=== PATIENT | female | born 1950 | race Caucasian/White ===

== ENCOUNTER 2017-10-05 14:00 | Outpatient (CLI) | payer OTHER | END 2017-10-05 14:01 | disposition home or self-care (01) | LOC: BICULT 14:00 | PROVIDERS: ATTEND Anesthesiology Pain Medicine | DX: I82.402 Acute embolism and thrombosis of unspecified deep veins of left lower extremity (principal) ==

== ENCOUNTER 2018-01-03 11:52 | Outpatient (CLI) | payer BC ==
[2018-01-03 13:46] LABS: #Basophils 0.1 thou/uL (0.0-0.2); #Eosinphils 0.2 thou/uL (0.0-0.7); #Monocytes 0.8 thou/uL (0.11-0.59); #Neutrophils 5.3 thou/uL (1.40-6.50); %Basophils 0.7 % (0.0-1.0); %Eosinophils 2.5 % (0.0-10.0); %Lymphocytes 23.9 % (21.0-51.0); %Monocytes 9.6 % (0.0-10.0); %Neutrophils 63.4 % (42.0-75.0); Hemoglobin 15.6 g/dL (12.0-16.0); Mean Corpuscular HGB CONC 34.2 g/dL (32.0-36.0); Mean Corpuscular Volume 93.5 fL (78.0-98.0); Platelet Count 211 thou/uL (130-400); RBC Distribution Width 12.3 % (11.5-14.5); Red Blood Cell (RBC) Count 4.87 mill/uL (4.20-5.40); White Blood Cell (WBC) Count 8.4 thou/uL (4.8-10.8)
== END 2018-01-03 11:53 | disposition home or self-care (01) ==
LOC: LABBT 11:52
PROVIDERS: ATTEND Specialist
DX: Z01.818 Encounter for other preprocedural examination (principal); K82.8 Other specified diseases of gallbladder
CPT/HCPCS: 85025; 93005; 93010

== ENCOUNTER 2018-01-04 09:39 | Day surgery (SDC) | payer BC ==
[2018-01-03 12:10] VITALS: BMI 46.0
--- NOTE | 2018-01-03 12:49 | HP ---
HISTORY OF PRESENT ILLNESS: Ms. Erica Smith is a 67-year-old female, morbidly obese, 294 pounds, 65 in ches, 43 BMI, who presents with episodic epigastric right upper quadrant pain with flank radiation, i nterscapular pain, bloating, belching, and indigestion. The patient has been treated for right flank pain, interscapular pain and seen Dr. Montelongo for injections without relief. She has seen a chi ropractor for 6 months without relief. She was referred for the ultrasound. [facility] as an [facility]. Ultrasound revealed gallstones, sludge balls, zeynep l caliber bile duct. Plan is for laparoscopic cholecystectomy as an outpatient. She understands the risks and benefits and consents. PAST MEDICAL HISTORY: Hypertension, elevated cholesterol, chronic thoracic and lumbar pain, colonosc opy recently normal, vitamin D deficiency. PAST SURGICAL HISTORY: Appendectomy, left wrist cyst resection, rectocele, cystocele. I repaired um bilical hernia in 2010, along with Dr. Collins doing the gynecological procedures. She has chronic th oracolumbar pain in disc and is followed by Dr. Montelongo and chiropractor. There is family histor y of heart disease. Her father of heart disease, sister with coronary artery disease. She rece ntly had a nuclear medicine cardiac stress test that was normal, performed Dr. Denny. The patien t was told she did not need to have catheterizations as her nuclear medicine cardiac stress test was normal. REVIEW OF SYSTEMS: [place] otherwise noncontributory. MEDICATIONS: Carvedilol 25 mg b.i.d., vitamin D daily. PHYSICAL EXAMINATION: VITAL SIGNS: 294 pounds, 65 inches, 43 BMI. SKIN: Nonjaundiced. HEENT: Unremarkable. Sclerae nonicteric NEUROLOGIC: No focal deficits. LUNGS: Clear to auscultation, no wheezing. CARDIAC: Regular rate and rhythm. No murmur or gallop. ABDOMEN: Soft, obese, mild tenderness in epigastrium and right upper quadrant with guarding. Obese abdomen. EXTREMITIES: No ankle edema, palpable pedal pulses. ASSESSMENT AND PLAN: 1. Chronic cholecystitis, cholelithiasis. Recommend laparoscopic video cholecystectomy. We will pr oceed tomorrow if she has ongoing pain. 2. Morbid obesity, metabolic syndrome. 3. Hypertension. 4. Chronic back pain.
[2018-01-04] MEDS ORDERED: Ketorolac Tromethamine 30 MG/ML VIAL ONE (10:53)
[2018-01-04] MEDS ORDERED: Piperacillin/Tazobactam 3.375 GM in Sodium Chloride 0.9% 100 ML IVPB SCH (11:00)
[2018-01-04] MEDS ORDERED: Bupivacaine HCl 0.5%/Epinephrine 1:200,000/PF 30 ml Vial ONE (11:03)
[2018-01-04] MEDS ORDERED: Fentanyl 250 MCG/5 ML VIAL ONE (11:08)
[2018-01-04] MEDS ORDERED: hydrALAZINE 20 MG/ML VIAL ONE (12:37)
[2018-01-04] MEDS ORDERED: Fentanyl 100 MCG/2 ML VIAL ONE ×2 (12:51→13:41)
--- NOTE | 2018-01-04 14:42 | OP ---
DATE OF PROCEDURE: 01/04/2018 PREOPERATIVE DIAGNOSES: Chronic cholecystitis, cholelithiasis, morbid obesity. POSTOPERATIVE DIAGNOSES: Chronic cholecystitis, cholelithiasis, morbid obesity, fatty liver. PROCEDURE: Laparoscopic video cholecystectomy. SURGEON: Jaime Espinal M.D. ANESTHESIA: General, local 0.5% Marcaine with epinephrine, 30 mL, total volume used. PROCEDURE IN DETAIL: The patient was taken to the operating room where under general anesthesia, abd omen was prepared with ChloraPrep and draped in routine fashion. Local anesthetic infiltrated into s kin and subcutaneous tissue about each port site. Because of the infraumbilical incision and umbilic al hernia repair with mesh in the past, the right subcostal incision made mid clavicular line and pne umoperitoneum to 15 mmHg were obtained with the Veress needle, replacing it with a 5 port and video l aparoscope inserted. There were adhesions about the umbilicus and above the umbilicus is adhesion fr ee. A supraumbilical incision was made and a 5-mm port directed to avoid these adhesions, visualized laparoscopically, removing the laparoscope through this port. Right subxiphoid incision made and 11 -port placed. Bilateral subcostal incision made, and a 5-port place. Gallbladder appeared normal ex ternally, and was slightly distended. Liver was fatty, consistent with her morbid obesity. Fundus o f the gallbladder grasped and reflected cephalad. Infundibulum grasped and reflected laterally. Cri tical view obtained. Cystic artery and duct dissected free to accomplish this and cystic artery and duct doubly clipped proximally, divided, and gallbladder dissected free from the liver bed obtaining good hemostasis prior to division of final peritoneal attachments. Gallbladder and contents removed. Small stones noted. Good hemostasis ensured with cautery. Irrigant and pneumoperitoneum evacuated . All instruments removed. All skin incisions approximated with interrupted subdermal 4-0 Monocryl after DermaGlue applied.
== END 2018-01-04 15:45 | disposition home or self-care (01) ==
LOC: SDC 09:39
PROVIDERS: ATTEND Specialist
PROC: 0FT44ZZ Resection of Gallbladder, Percutaneous Endoscopic Approach (ICD-10-PCS; principal; 2018-01-04)
DX: K81.1 Chronic cholecystitis (principal); I10 Essential (primary) hypertension; E78.00 Pure hypercholesterolemia, unspecified; G89.29 Other chronic pain; M54.6 Pain in thoracic spine; E55.9 Vitamin D deficiency, unspecified; M54.5 Low back pain; E66.01 Morbid (severe) obesity due to excess calories; K76.0 Fatty (change of) liver, not elsewhere classified; Z79.899 Other long term (current) drug therapy; Z88.2 Allergy status to sulfonamides; Z88.1 Allergy status to other antibiotic agents; Z88.5 Allergy status to narcotic agent; Z88.8 Allergy status to other drugs, medicaments and biological substances; Z68.42 Body mass index [BMI] 45.0-49.9, adult
CPT/HCPCS: 88304; 96374; 96376; J0131; J0360; J0670; J1885; J2543; J3010; J7050

== ENCOUNTER 2018-01-13 15:41 | Outpatient (CLI) | payer BC ==
--- NOTE | 2018-01-13 16:22 | ULT ---
ULTRASOUND WITH DOPPLER DUPLEX VENOUS LOWER EXTREMITY LEFT: CPT: 94008 ICD-10-PCS: B54D INDICATION: Edema, erythema, and pain of left lower extremity. TECHNIQUE: Color flow Doppler, spectral waveform analysis of pulsed Doppler, and peace-scale imaging with connor chica and augmentation, were used to evaluate the left common femoral, femoral, popliteal, posterior t ibial, and superficial femoral, veins; and the proximal portions of the profunda femoral and greater saphenous, veins. FINDINGS: Appropriate compressibility and flow within the imaged deep venous system of the left lower extremity . IMPRESSION: No deep venous thrombosis. POS: [facility]
== END 2018-01-13 15:42 | disposition home or self-care (01) ==
LOC: SCSULT 15:41
PROVIDERS: ATTEND Podiatrist Foot & Ankle Surgery
DX: R60.0 Localized edema (principal)

== ENCOUNTER 2018-03-14 14:47 | Outpatient (CLI) | payer BC ==
--- NOTE | 2018-03-14 17:07 | MRI ---
MRI THORACIC SPINE WITHOUT CONTRAST: 03/14/18 HISTORY: Chronic back pain. Neck pain. Symptoms on the left side. COMPARISON: None. TECHNIQUE: Thoracic spine MRI is performed without intravenous gadolinium administration. Multisequential, multi planar imaging is performed. FINDINGS: An appropriate T1 narrow signal intensity of the thoracic vertebrae. Thoracic spine vertebral body he ight is maintained. There is no fracture. No significant STIR hyperintensity to suggest vertebral bod y edema or ligamentous injury. The visualized thoracic cord has an overall normal size and signal int ensity. The conus medullaris terminates at the superior aspect of L1. There is no evidence of cord ma lacia. There is no evidence of T2 hyperintensity in the cord. No evidence cord expansion. T6-T7: Small right sided disc protrusion deforming the thecal sac and deforming the right hemicord. M ild central canal stenosis. T7-T8: There is a right sided disc protrusion that deforms the thecal sac and deforms the right hemic ord. Mild central canal stenosis. No signal abnormality of the cord. Patent neural foramina throughou t the thoracic spine. The visualized mediastinum and lung parenchyma are unremarkable. There is prominent fat in the adolescent medicine specialist ior left pleural margin, similar to a CT from April 2017. IMPRESSION: Degenerative disc disease of the thoracic spine as above. No high grade central canal stenosis. No hi gh grade foraminal narrowing. The greatest degree of degenerative disc disease at T6-T7 and T7-T8. POS: [facility]
--- NOTE | 2018-03-14 17:24 | MRI ---
MRI LUMBAR SPINE WITHOUT CONTRAST: 03/14/18 HISTORY: Lumbar radiculopathy. COMPARISON: 04/20/17. TECHNIQUE: MRI lumbar spine is performed without intravenous gadolinium administration. Multisequential, multipl jennifer imaging is performed. FINDINGS: Appropriate T1 narrow signal intensity of the lumbar vertebrae. Lumbar spine vertebral body height is maintained. There is no fracture. No significant STIR hyperintensity to suggest vertebral body edema or ligamentous injury. There is 3 mm of anterolisthesis of L4 upon L5, unchanged. The visualized solid organs have appropriate signal intensity. Right parapelvic cysts are again demon strated. The conus medullaris terminates at the superior aspect of L1. T12-L1: Adequate disc hydration. No significant central canal stenosis. Neural foramina are patent. L1-L2: Adequate disc hydration. No significant central canal stenosis or foraminal narrowing. L2-L3: There is minimal disc desiccation without significant loss of disc space height. Generalized d isc bulge, ligamentum flavum thickening and facet hypertrophy results in mild central canal stenosis. The degree of central canal stenosis has not progressed when compared to the prior examination. Bila terally, neural foramina are minimally narrowed. L3-L4: Adequate disc hydration. No significant loss of disc space height. No significant posterior di sc abnormality. No significant central canal stenosis. Disc material does encroach upon the left suba rticular zone and abuts the traversing left L4 nerve root. There is a subtle T2 and hyperintense focu s representing a small annular fissure, involving the disc at the subarticular zone, adjacent to the traversing left L4 nerve root. No significant foraminal narrowing. L4-L5: Adequate disc hydration. No significant loss of disc space height. Generalized disc bulge, lig amentum flavum thickening and facet hypertrophy result in mild to moderate central canal stenosis. Ne ural foramina are patent bilaterally. There is a subtle T2 and hyperintense lesion along the right la teral/right extraforaminal aspect of the disc suggesting a small annular fissure. The finding is bora lar to the previous examination. L5-S1: No significant central canal stenosis or foraminal narrowing. IMPRESSION: 1. Stable anterolisthesis of L4 upon L5. 2. Stable annular fissure along the right lateral aspect of the L4-L5 disc at the level of the r ight neural foramen. No significant associated abnormality with this aforementioned annular fissure. 3. Narrowing of the left subarticular zone at L3-L4. There is some mass effect upon the traversi ng left L4 nerve root. There is an adjacent annular fissure. POS: [facility]
== END 2018-03-14 14:48 | disposition home or self-care (01) ==
LOC: TBSIIMAG 14:47
PROVIDERS: ATTEND Neurological Surgery
DX: M54.6 Pain in thoracic spine (principal); M51.34 Other intervertebral disc degeneration, thoracic region; M43.16 Spondylolisthesis, lumbar region; M99.83 Other biomechanical lesions of lumbar region; M51.16 Intervertebral disc disorders with radiculopathy, lumbar region; M48.061 Spinal stenosis, lumbar region without neurogenic claudication
CPT/HCPCS: 72146; 72148

== ENCOUNTER 2018-04-27 10:37 | Outpatient (CLI) | payer BC | END 2018-04-27 10:38 | disposition home or self-care (01) | LOC: BICMAMMO 10:37 | PROVIDERS: ATTEND Internal Medicine | DX: Z12.31 Encounter for screening mammogram for malignant neoplasm of breast (principal); R92.1 Mammographic calcification found on diagnostic imaging of breast; Z80.3 Family history of malignant neoplasm of breast | CPT/HCPCS: 77063; 77067 ==

== ENCOUNTER 2018-08-21 14:21 | Outpatient (CLI) | payer BC ==
--- NOTE | 2018-08-21 15:29 | RAD ---
CHEST TWO VIEWS: 08/21/2018 PROVIDED CLINICAL HISTORY: Chronic bronchitis. Cough. COMPARISON: 06/22/2018 FINDINGS: The cardiac silhouette remains enlarged. No focal consolidation, pleural fluid, or pneumothorax appa rent. IMPRESSION: Stable radiographic appearance of the chest. POS: [facility]
== END 2018-08-21 14:22 | disposition home or self-care (01) ==
LOC: BICRAD 14:21
PROVIDERS: ATTEND Nurse Practitioner Family
DX: J41.1 Mucopurulent chronic bronchitis (principal)
CPT/HCPCS: 71046

== ENCOUNTER 2018-09-01 08:47 | Outpatient (CLI) | payer BC ==
--- NOTE | 2018-09-01 10:44 | CT ---
CT OF THE CHEST WITH CONTRAST: Date: 09/01/18 COMPARISON: 03/16/13. HISTORY: Cough that she cannot get rid of, with bronchitis. Cardiac mass. TECHNIQUE: Multiple contiguous axial images were obtained in a CT of the chest with contrast. Sagittal and coron al reformats were performed. FINDINGS: The heart is normal in size without focal cardiac abnormality. Evaluation of the heart is limited for a small mass as this exam is not gated and cardiac motion is present. No hilar or mediastinal lympha denopathy are seen. There are calcifications in the olguin arteries and aorta. There are stable areas of nodularity throughout the lungs. These are seen in the right middle lobe, l ingula, and left lower lobe. No new pulmonary nodules are seen and these areas of nodularity likely r epresent scarring as they are stable dating back to 2012. No pneumothorax or pleural effusion seen. The patient is status post cholecystectomy. The visualized subdiaphragmatic structures are unremarkab le. Degenerative changes are seen in the spine. The chest wall soft tissues are unremarkable. IMPRESSION: No significant intrathoracic abnormality. POS: [facility]
[2018-09-01] MEDS ORDERED: Iopamidol 370 76% 100 ML VIAL ONE (12:43)
== END 2018-09-01 08:48 | disposition home or self-care (01) ==
LOC: BICCT 08:47
PROVIDERS: ATTEND Internal Medicine Cardiovascular Disease
DX: I51.89 Other ill-defined heart diseases (principal)
CPT/HCPCS: 71260; 82565

== ENCOUNTER 2019-01-19 12:04 | Outpatient (CLI) | payer BC ==
--- NOTE | 2019-01-19 13:25 | ULT ---
THYROID ULTRASOUND: Date: 01-19-19 COMPARISON: None HISTORY: Evaluate thyroid nodule TECHNIQUE: Multiplanar grayscale sonographic imaging of the thyroid gland obtained. FINDINGS: Thyroid isthmus measures 4 mm in AP dimension. Right lobe measures 3.9 x 1.2 x 1.1 cm and left lobe measures 4.0 x 1.3 x 1.2 cm. Within the inferior aspect of the right lobe there is a hypoechoic solid nodule measuring 7 x 5 x 5 m m. No internal calcification is noted. There is a solid heterogeneously hypoechoic nodule within the lateral aspect of the inferior portion of the left lobe measuring 1.3 x 0.9 x 0.8 cm. No internal calcifications. No comparison imaging available. IMPRESSION: BI-RADS Category 4-moderately suspicious. Given size of largest nodule between 1.5 and 1 cm, a follow -up ultrasound is advised in 6 months. Transcribed Date/Time: 01/19/2019 1:41 PM
== END 2019-01-19 12:05 | disposition home or self-care (01) ==
LOC: BICULT 12:04
PROVIDERS: ATTEND Otolaryngology Plastic Surgery within the Head & Neck
DX: E04.2 Nontoxic multinodular goiter (principal)
CPT/HCPCS: 76536

== ENCOUNTER 2019-05-01 10:25 | Outpatient (CLI) | payer BC ==
--- NOTE | 2019-05-01 11:05 | MMO ---
Bilateral MAMMO Bilat Screen [facility]. CLINICAL HISTORY: Patient is 69 years old and is seen for screening. The patient has the following family history of breast cancer: mother, at age 33, malignant (generic). The patient has no personal history of cancer. The patient has a history of left Excisional Biopsy more than 10 years ago - benign. VIEWS: The views performed were: bilateral craniocaudal with tomosynthesis and bilateral mediolateral oblique with tomosynthesis. FILMS COMPARED: The present examination has been compared to prior imaging studies performed at [facility] on 05/30/2012, 04/20/2016, 04/26/2017 and 04/27/2018. This study has been interpreted with the assistance of computer-aided detection. MAMMOGRAM FINDINGS: The breasts are almost entirely fat. There are stable benign appearing calcifications seen in both breasts. There are no suspicious masses, suspicious calcifications, or new areas of architectural distortion. IMPRESSION: THERE IS NO MAMMOGRAPHIC EVIDENCE OF MALIGNANCY. A ROUTINE FOLLOW-UP MAMMOGRAM IN 1 YEAR IS RECOMMENDED. THE RESULTS OF THIS EXAM WERE SENT TO THE PATIENT. ACR BI-RADS Category 2 - Benign finding MAMMOGRAPHY NOTE: 1. A negative mammogram report should not delay a biopsy if a dominant of clinically suspicious mass is present. 2. Approximately 10% to 15% of breast cancers are not detected by mammography. 3. Adenosis and dense breasts may obscure an underlying neoplasm. Reported by: RAMANDEEP GENAO MD Electonically Signed: [id number]
== END 2019-05-01 10:26 | disposition home or self-care (01) ==
LOC: BICMAMMO 10:25
PROVIDERS: ATTEND Internal Medicine
DX: Z12.31 Encounter for screening mammogram for malignant neoplasm of breast (principal); Z80.3 Family history of malignant neoplasm of breast; Z91.89 Other specified personal risk factors, not elsewhere classified
CPT/HCPCS: 77063; 77067

== ENCOUNTER 2019-05-25 12:37 | Outpatient (CLI) | payer BC ==
--- NOTE | 2019-05-25 13:27 | MRI ---
MRI BRAIN WITHOUT CONTRAST: HISTORY: TIA. Left eye vision loss. Ocular migraine FINDINGS: No restricted diffusion is seen. There are multiple foci of T2 prolongation in the periventricular wh ite matter, consistent with chronic small vessel ischemic disease. The ventricular size is appropriate and the basilar cisterns are patent. No evidence of acute infarct, hemorrhage, midline shift or abnormal extra-axial fluid collections is seen. The visualized paranasal sinuses are well-aerated. There is a small amount of fluid in the mastoid ai r cells. IMPRESSION: No evidence of acute intracranial process.
== END 2019-05-25 12:38 | disposition home or self-care (01) ==
LOC: TBSIIMAG 12:37
PROVIDERS: ATTEND Internal Medicine
DX: G45.9 Transient cerebral ischemic attack, unspecified (principal)
CPT/HCPCS: 70551

== ENCOUNTER 2019-11-22 10:21 | Outpatient (CLI) | payer BC ==
--- NOTE | 2019-11-22 12:37 | ULT ---
THYROID ULTRASOUND: Date: 11/22/2019 INDICATION: Thyroid nodule. No comparison. FINDINGS: Both lobes of the thyroid show homogeneous echotexture. Lobes are normal size and symmetric, with rig ht lobe measuring 4.1 x 1.2 x 1.2 cm and left lobe measuring 4.4 x 1.4 x 1.4 cm. In the right lobe, there is a small, hypoechoic, circumscribed nodule in the mid right lobe measuring 6-7 mm. In the inferior left lobe, there is a slightly complex, circumscribed, solid nodule measuring 1.0 cm. IMPRESSION: Small nodule seen in each lobe of the thyroid as described above. Recommend 6 month follow-up thyroid ultrasound to confirm stability. POS: [facility]
== END 2019-11-22 10:22 | disposition home or self-care (01) ==
LOC: BICULT 10:21
PROVIDERS: ATTEND Otolaryngology Plastic Surgery within the Head & Neck
DX: E04.2 Nontoxic multinodular goiter (principal)
CPT/HCPCS: 76536

== ENCOUNTER 2020-05-05 14:04 | Outpatient (CLI) | payer BC ==
--- NOTE | 2020-05-05 14:47 | MMO ---
Bilateral MAMMO Bilat Screen [facility]. CLINICAL HISTORY: Patient is 70 years old and is seen for screening. The patient has the following family history of breast cancer: mother, at age 33, malignant (generic). The patient has no personal history of cancer. The patient has a history of left Excisional Biopsy more than 10 years ago - benign. VIEWS: The views performed were: bilateral craniocaudal with tomosynthesis and bilateral mediolateral oblique with tomosynthesis. FILMS COMPARED: The present examination has been compared to prior imaging studies performed at [facility] on 04/20/2016, 04/26/2017, 04/27/2018 and 05/01/2019. This study has been interpreted with the assistance of computer-aided detection. MAMMOGRAM FINDINGS: There are scattered fibroglandular densities. There are benign appearing calcifications seen in both breasts. There are no suspicious masses, suspicious calcifications, or new areas of architectural distortion. IMPRESSION: THERE IS NO MAMMOGRAPHIC EVIDENCE OF MALIGNANCY. A ROUTINE FOLLOW-UP MAMMOGRAM IN 1 YEAR IS RECOMMENDED. THE RESULTS OF THIS EXAM WERE SENT TO THE PATIENT. ACR BI-RADS Category 2 - Benign finding MAMMOGRAPHY NOTE: 1. A negative mammogram report should not delay a biopsy if a dominant of clinically suspicious mass is present. 2. Approximately 10% to 15% of breast cancers are not detected by mammography. 3. Adenosis and dense breasts may obscure an underlying neoplasm. Reported by: KEVIN MARTINO MD Electonically Signed: [id number]
== END 2020-05-05 14:05 | disposition home or self-care (01) ==
LOC: BICMAMMO 14:04
PROVIDERS: ATTEND Internal Medicine
DX: Z12.31 Encounter for screening mammogram for malignant neoplasm of breast (principal); Z80.3 Family history of malignant neoplasm of breast; Z91.89 Other specified personal risk factors, not elsewhere classified
CPT/HCPCS: 77063; 77067

== ENCOUNTER 2020-11-13 07:46 | Outpatient (CLI) | payer BC | END 2020-11-13 07:47 | disposition home or self-care (01) | LOC: TBSIIMAG 07:46 | PROVIDERS: ATTEND Anesthesiology Pain Medicine | DX: M47.22 Other spondylosis with radiculopathy, cervical region (principal); M43.16 Spondylolisthesis, lumbar region; M48.02 Spinal stenosis, cervical region | CPT/HCPCS: 72100; 72141 ==

== ENCOUNTER 2020-11-28 13:35 | Outpatient (CLI) | payer BC | END 2020-11-28 13:36 | disposition home or self-care (01) | LOC: BICULT 13:35 | PROVIDERS: ATTEND Otolaryngology Plastic Surgery within the Head & Neck | DX: E04.2 Nontoxic multinodular goiter (principal) | CPT/HCPCS: 76536 ==

== ENCOUNTER 2021-02-04 11:00 | Outpatient (CLI) | payer BC ==
[2021-02-04 12:28] LABS: Hemoglobin 14.7 g/dL (12.0-15.5); Mean Corpuscular HGB CONC 33.1 g/dL (32.0-36.0); Mean Corpuscular Hemoglobin 30.9 pg (27.0-33.0); Mean Corpuscular Volume 93.5 fl (81.6-98.3); Mean Platelet Volume 9.7 fl (7.4-10.4); Platelet Count 198 10x3/uL (150-450); RBC Distribution Width 13.2 % (11.5-14.5); Red Blood Cell (RBC) Count 4.75 10x6/uL (3.90-5.03); White Blood Cell (WBC) Count 6.7 10x3/uL (3.5-10.5)
[2021-02-04 12:50] LABS: Anion Gap 14 mmol/L (10-20); BUN (Urea Nitrogen) 17 mg/dL (9.8-20.1); Calc. Creatinine Clearance 0 mL/min (70-130); Carbon Dioxide 28 mmol/L (23-31); Cardiac Risk 8.2 (Less than 4.5); Chloride 105 mmol/L (98-107); Cholesterol 287 mg/dl (< 200 Desired); Glucose 132 mg/dL (80-115); HDL Cholesterol 35 mg/dL (>60 Neg Risk); LDL Cholesterol, Calculated 203 mg/dL; Potassium 4.5 mmol/L (3.5-5.1); Sodium 142 mmol/L (136-145); Triglycerides 246 mg/dL (Less than 150)
[2021-02-05 00:28] LABS: SARS-CoV-2 PCR by NAA Not Detected (NotDetected)
== END 2021-02-04 11:01 | disposition home or self-care (01) ==
LOC: LABBT 11:00
PROVIDERS: ATTEND Psychiatry & Neurology Child & Adolescent Psychiatry
DX: Z01.818 Encounter for other preprocedural examination (principal); M47.12 Other spondylosis with myelopathy, cervical region; Z20.822 Contact with and (suspected) exposure to COVID-19
CPT/HCPCS: 80048; 80061; 85027; 93005; 93010; U0003; U0005

== ENCOUNTER 2021-02-09 06:20 | Observation (INO) | payer BC ==
[2021-02-05 15:05] VITALS: BMI 46.3
[2021-02-09] MEDS ORDERED: Scopolamine 1.5 mg/72 hour Patch ONE (07:22)
[2021-02-09] MEDS ORDERED: Fentanyl 250 MCG/5 ML VIAL ONE (07:38)
[2021-02-09] MEDS ORDERED: SUGAMMADEX SODIUM 200 MG/2 ML VIAL ONE ×2 (07:38→09:22)
[2021-02-09] MEDS ORDERED: Neomycin-Polymyxin 1 ML AMP ONE (08:08)
[2021-02-09] MEDS ORDERED: ePHEDrine 50 MG/ML VIAL ONE (08:37)
[2021-02-09] MEDS ORDERED: Lidocaine 1% PF 5 ML VIAL ONE (08:37)
[2021-02-09] MEDS ORDERED: Glycopyrrolate 0.2 MG/ML 5 ML SYRINGE ONE (08:37)
[2021-02-09] MEDS ORDERED: Rocuronium Bromide 10 MG/ML (10ML VIAL) ONE (08:37)
[2021-02-09] MEDS ORDERED: PROPOFOL 200 MG/20 ML VIAL ONE (08:37)
[2021-02-09] MEDS ORDERED: Dexamethasone 20 MG/5 ML VIAL ONE (08:37)
[2021-02-09] MEDS ORDERED: Ketorolac Tromethamine 30 MG/ML VIAL ONE (08:37)
[2021-02-09] MEDS ORDERED: Ondansetron PF 4 MG/2 ML Vial ONE (08:37)
[2021-02-09] MEDS ORDERED: Fentanyl 100 MCG/2 ML VIAL ONE (10:55)
[2021-02-09] MEDS ORDERED: Clindamycin/D5W 900 mg/50 ml Premix Bag ONE ×2 (15:51→23:30)
[2021-02-09] MEDS ORDERED: Sodium Chloride 0.9% 10 ML ONE ×2 (15:59→16:49)
[2021-02-09] MEDS ORDERED: hydrALAZINE 20 MG/ML VIAL ONE (16:45)
[2021-02-09] MEDS ORDERED: Carvedilol 25 MG TAB PO SCH (17:00)
[2021-02-09] MEDS ORDERED: tiZANidine HCl 4 MG TAB ONE (17:11)
[2021-02-09] MEDS ORDERED: Carvedilol 6.25 MG TAB ONE (17:13)
[2021-02-09] MEDS ORDERED: Ondansetron PF 4 MG/2 ML Vial IVP PRN (19:17)
[2021-02-09] MEDS ORDERED: Morphine 4 MG/ML VIAL SLOW IVP PRN (19:30)
[2021-02-09] MEDS ORDERED: Mag-Al 1200 mg/1200 mg/30 ML UDCUP PO PRN (19:30)
[2021-02-09] MEDS ORDERED: tiZANidine HCl 4 MG TAB PO PRN (19:30)
[2021-02-09] MEDS ORDERED: Promethazine HCl 25 MG/ML VIAL IM PRN (19:30)
[2021-02-09] MEDS ORDERED: traMADol HCl 50 MG TAB PO PRN ×2 (19:30)
[2021-02-09] MEDS ORDERED: Promethazine HCl 12.5 MG SUPP PR PRN (19:30)
[2021-02-09] MEDS ORDERED: Morphine 2 MG/ML VIAL SLOW IVP PRN (19:30)
[2021-02-09] MEDS ORDERED: diphenhydrAMINE 50 MG/ML VIAL IVP PRN (19:30)
[2021-02-09] MEDS ORDERED: Sodium Chloride 0.9% 1,000 ML IV SCH (19:30)
[2021-02-09] MEDS ORDERED: Promethazine 25 MG TAB PO PRN (19:30)
[2021-02-09] MEDS ORDERED: Milk Of Magnesia 30 ML UDCUP PO PRN (19:30)
[2021-02-09] MEDS ORDERED: diphenhydrAMINE 25 MG CAP PO PRN (19:30)
[2021-02-09] MEDS: Clindamycin/D5W 900 MG in Premix Bag 1 BAG IVPB SCH (23:20)
[2021-02-10] MEDS ORDERED: traMADol HCl 50 MG TAB ONE (03:07)
[2021-02-10] MEDS ORDERED: Clindamycin/D5W 900 mg/50 ml Premix Bag ONE (06:05)
[2021-02-10] MEDS: Clindamycin/D5W 900 MG in Premix Bag 1 BAG IVPB SCH (06:11)
[2021-02-10 07:59] VITALS: BP 155/79; TEMP 97.4
[2021-02-10] MEDS ORDERED: Cholecalciferol 1,000 UNITS (25 MCG) TAB PO SCH (09:00)
== END 2021-02-10 10:08 | disposition home or self-care (01) ==
LOC: SDC 06:20 → PACU-TCU 10:37
PROVIDERS: ADMIT Neurological Surgery; ATTEND Neurological Surgery
PROC: 0RG10A0 Fusion of Cervical Vertebral Joint with Interbody Fusion Device, Anterior Approach, Anterior Column, Open Approach (ICD-10-PCS; principal; 2021-02-09)
DX: M48.02 Spinal stenosis, cervical region (principal); M47.12 Other spondylosis with myelopathy, cervical region; I10 Essential (primary) hypertension; Z79.899 Other long term (current) drug therapy; Z88.1 Allergy status to other antibiotic agents; Z88.2 Allergy status to sulfonamides; Z88.5 Allergy status to narcotic agent
CPT/HCPCS: 76000; 96374; 96375; C1713; C1776; G0378; J0360; J0690; J1100; J1885; J2405; J2704; J3010; J3490

== ENCOUNTER 2021-02-26 08:47 | Outpatient (CLI) | payer BC | END 2021-02-26 08:48 | disposition home or self-care (01) | LOC: TBSIIMAG 08:47 | PROVIDERS: ATTEND Physician Assistant | DX: M47.12 Other spondylosis with myelopathy, cervical region (principal); Z98.1 Arthrodesis status | CPT/HCPCS: 72040 ==

== ENCOUNTER 2021-04-14 14:14 | Outpatient (CLI) | payer BC | END 2021-04-14 14:15 | disposition home or self-care (01) | LOC: TBSIIMAG 14:14 | PROVIDERS: ATTEND Neurological Surgery | DX: M50.30 Other cervical disc degeneration, unspecified cervical region (principal) | CPT/HCPCS: 72040 ==

== ENCOUNTER 2021-05-07 11:11 | Outpatient (CLI) | payer BC | END 2021-05-07 11:12 | disposition home or self-care (01) | LOC: BICMAMMO 11:11 | PROVIDERS: ATTEND Internal Medicine | DX: Z12.31 Encounter for screening mammogram for malignant neoplasm of breast (principal); Z91.89 Other specified personal risk factors, not elsewhere classified; Z80.3 Family history of malignant neoplasm of breast | CPT/HCPCS: 77063; 77067 ==

== ENCOUNTER 2021-05-12 12:29 | Outpatient (CLI) | payer BC | END 2021-05-12 12:30 | disposition home or self-care (01) | LOC: TBSIIMAG 12:29 | PROVIDERS: ATTEND Neurological Surgery | DX: M47.12 Other spondylosis with myelopathy, cervical region (principal); M54.6 Pain in thoracic spine; M47.814 Spondylosis without myelopathy or radiculopathy, thoracic region; M47.26 Other spondylosis with radiculopathy, lumbar region; M43.16 Spondylolisthesis, lumbar region; M51.16 Intervertebral disc disorders with radiculopathy, lumbar region; M48.061 Spinal stenosis, lumbar region without neurogenic claudication; Z98.1 Arthrodesis status | CPT/HCPCS: 72040; 72146; 72148 ==

== ENCOUNTER 2021-05-29 11:42 | Outpatient (CLI) | payer BC ==
[2021-05-29 14:38] LABS: #Basophils 0.1 10x3/uL (0.0-0.2); #Eosinphils 0.3 10x3/uL (0.0-0.5); #Monocytes 0.6 10x3/uL (0.0-1.1); #Neutrophils 3.6 10x3/uL (1.5-8.4); %Basophils 1.4 % (0.0-2.0); %Eosinophils 4.9 % (0.0-6.0); %Lymphocytes 28.1 % (18.0-47.0); %Monocytes 8.9 % (0.0-10.0); %Neutrophils 56.2 % (40.0-75.0); Hemoglobin 13.8 g/dL (12.0-15.5); Mean Corpuscular HGB CONC 32.1 g/dL (32.0-36.0); Mean Corpuscular Hemoglobin 30.8 pg (27.0-33.0); Mean Platelet Volume 10.2 fl (7.4-10.4); Platelet Count 200 10x3/uL (150-450); RBC Distribution Width 13.6 % (11.5-14.5); Red Blood Cell (RBC) Count 4.48 10x6/uL (3.90-5.03); White Blood Cell (WBC) Count 6.4 10x3/uL (3.5-10.5)
[2021-05-29 14:55] LABS: ALT (SGPT) 25 U/L (8-55); AST (SGOT) 23 U/L (5-34); Albumin 4.1 g/dL (3.4-4.8); Alkaline Phosphatase 67 U/L (40-110); Anion Gap 11 mmol/L (10-20); BUN (Urea Nitrogen) 15 mg/dL (9.8-20.1); Bilirubin, Total 0.7 mg/dL (0.2-1.2); Calc. Creatinine Clearance 0 mL/min (70-130); Calcium 8.9 mg/dL (7.8-10.44); Carbon Dioxide 26 mmol/L (23-31); Cardiac Risk 3.8 (Less than 4.5); Chloride 108 mmol/L (98-107); Cholesterol 150 mg/dl (< 200 Desired); Globulin 2.4 g/dL (2.4-3.5); Glucose 110 mg/dL (80-115); HDL Cholesterol 39 mg/dL (>60 Neg Risk); LDL Cholesterol, Calculated 87 mg/dL; Potassium 4.4 mmol/L (3.5-5.1); Protein, Total 6.5 g/dL (5.8-8.1); Sodium 141 mmol/L (136-145); Triglycerides 118 mg/dL (Less than 150)
[2021-05-29 21:46] LABS: SARS-CoV-2 PCR by NAA Not Detected (NotDetected)
== END 2021-05-29 11:43 | disposition home or self-care (01) ==
LOC: LABBT 11:42
PROVIDERS: ATTEND Internal Medicine Cardiovascular Disease
DX: Z01.812 Encounter for preprocedural laboratory examination (principal); Z20.822 Contact with and (suspected) exposure to COVID-19
CPT/HCPCS: 80053; 80061; 85025; U0003; U0005

== ENCOUNTER 2021-06-03 05:50 | Day surgery (SDC) | payer BC ==
[2021-06-02 11:30] VITALS: BMI 44.8
== END 2021-06-03 07:37 | disposition home or self-care (01) ==
LOC: CCL 05:50
PROVIDERS: ATTEND Internal Medicine Cardiovascular Disease
DX: R06.09 Other forms of dyspnea (principal); R94.39 Abnormal result of other cardiovascular function study; I25.10 Atherosclerotic heart disease of native coronary artery without angina pectoris; E78.2 Mixed hyperlipidemia; I10 Essential (primary) hypertension; E66.9 Obesity, unspecified; Z68.41 Body mass index [BMI] 40.0-44.9, adult; Z53.9 Procedure and treatment not carried out, unspecified reason; Z79.899 Other long term (current) drug therapy; Z88.1 Allergy status to other antibiotic agents; Z88.2 Allergy status to sulfonamides; Z88.5 Allergy status to narcotic agent; Z88.8 Allergy status to other drugs, medicaments and biological substances

== ENCOUNTER 2021-07-06 13:50 | Outpatient (CLI) | payer BC ==
[2021-07-06 15:37] LABS: #Basophils 0.1 10x3/uL (0.0-0.2); #Eosinphils 0.3 10x3/uL (0.0-0.5); #Monocytes 0.8 10x3/uL (0.0-1.1); #Neutrophils 3.7 10x3/uL (1.5-8.4); %Basophils 0.9 % (0.0-2.0); %Eosinophils 4.5 % (0.0-6.0); %Lymphocytes 30.3 % (18.0-47.0); %Monocytes 11.1 % (0.0-10.0); %Neutrophils 52.8 % (40.0-75.0); Hemoglobin 14.1 g/dL (12.0-15.5); Mean Corpuscular HGB CONC 32.1 g/dL (32.0-36.0); Mean Corpuscular Hemoglobin 30.8 pg (27.0-33.0); Mean Corpuscular Volume 95.9 fl (81.6-98.3); Mean Platelet Volume 9.9 fl (7.4-10.4); Platelet Count 207 10x3/uL (150-450); RBC Distribution Width 13.5 % (11.5-14.5); Red Blood Cell (RBC) Count 4.58 10x6/uL (3.90-5.03)
[2021-07-06 15:57] LABS: Chloride 105 mmol/L (98-107); Potassium 4.6 mmol/L (3.5-5.1); Sodium 142 mmol/L (136-145)
[2021-07-06 15:58] LABS: ALT (SGPT) 19 U/L (8-55); AST (SGOT) 20 U/L (5-34); Albumin 4.1 g/dL (3.4-4.8); Alkaline Phosphatase 69 U/L (40-110); Anion Gap 11 mmol/L (10-20); BUN (Urea Nitrogen) 15 mg/dL (9.8-20.1); Bilirubin, Total 0.5 mg/dL (0.2-1.2); Calc. Creatinine Clearance 0 mL/min (70-130); Calcium 9.2 mg/dL (7.8-10.44); Carbon Dioxide 31 mmol/L (23-31); Globulin 2.5 g/dL (2.4-3.5); Glucose 109 mg/dL (80-115); Protein, Total 6.6 g/dL (5.8-8.1)
[2021-07-07 09:08] LABS: SARS-CoV-2 PCR by NAA Not Detected (NotDetected)
== END 2021-07-06 13:51 | disposition home or self-care (01) ==
LOC: LABBT 13:50
PROVIDERS: ATTEND Internal Medicine Cardiovascular Disease
DX: Z01.812 Encounter for preprocedural laboratory examination (principal); R06.00 Dyspnea, unspecified; Z20.822 Contact with and (suspected) exposure to COVID-19
CPT/HCPCS: 80053; 85025; U0003; U0005

== ENCOUNTER 2021-07-09 05:47 | Day surgery (SDC) | payer BC ==
[2021-07-01 12:45] VITALS: BMI 44.6
[2021-07-09] MEDS ORDERED: Verapamil 5 MG/2 ML VIAL ONE (06:31)
[2021-07-09] MEDS ORDERED: Heparin 10,000 UNITS/ 10 ML VIAL ONE ×2 (06:31→07:40)
[2021-07-09] MEDS ORDERED: Nitroglycerin 100MG/250ML BOT 250 ML ONE (06:31)
[2021-07-09] MEDS ORDERED: Midazolam HCl 2 mg/2 ml Vial ONE (07:00)
[2021-07-09] MEDS ORDERED: Fentanyl 100 MCG/2 ML VIAL ONE (07:00)
[2021-07-09] MEDS ORDERED: hydrALAZINE 20 MG/ML VIAL ONE ×2 (07:23→07:33)
[2021-07-09] MEDS ORDERED: Clopidogrel Bisulfate 300 MG TAB ONE ×2 (07:48)
[2021-07-09] MEDS ORDERED: Aspirin Chewable 81 MG TAB ONE ×3 (08:00→08:03)
[2021-07-09] MEDS ORDERED: Iopamidol 370 76% 100 ML VIAL ONE (09:22)
[2021-07-09] MEDS ORDERED: Iopamidol 370 76% 50 ML VIAL FS ONE (09:22)
== END 2021-07-09 14:19 | disposition home or self-care (01) ==
LOC: CCL 05:47
PROVIDERS: ATTEND Internal Medicine Cardiovascular Disease
PROC: 02703DZ Dilation of Coronary Artery, One Artery with Intraluminal Device, Percutaneous Approach (ICD-10-PCS; principal; 2021-07-09)
PROC: B2111ZZ Fluoroscopy of Multiple Coronary Arteries using Low Osmolar Contrast (ICD-10-PCS; principal; 2021-07-09)
PROC: 4A023N7 Measurement of Cardiac Sampling and Pressure, Left Heart, Percutaneous Approach (ICD-10-PCS; principal; 2021-07-09)
DX: R06.09 Other forms of dyspnea (principal); R94.39 Abnormal result of other cardiovascular function study; I25.10 Atherosclerotic heart disease of native coronary artery without angina pectoris; I10 Essential (primary) hypertension; E78.5 Hyperlipidemia, unspecified; E66.9 Obesity, unspecified; Z68.42 Body mass index [BMI] 45.0-49.9, adult; Z79.82 Long term (current) use of aspirin; Z79.899 Other long term (current) drug therapy; Z88.1 Allergy status to other antibiotic agents; Z88.2 Allergy status to sulfonamides; Z88.5 Allergy status to narcotic agent; Z88.8 Allergy status to other drugs, medicaments and biological substances
CPT/HCPCS: 85347; 92928; 93005; 93454; 99152; 99153; C1769; C1874; C9600; J0360; J1644; J2250; J3010; Q9967

== ENCOUNTER 2021-11-27 12:11 | Outpatient (CLI) | payer BC | END 2021-11-27 12:12 | disposition home or self-care (01) | LOC: BICULT 12:11 | PROVIDERS: ATTEND Otolaryngology Plastic Surgery within the Head & Neck | DX: E04.2 Nontoxic multinodular goiter (principal) | CPT/HCPCS: 76536 ==

== ENCOUNTER 2022-03-23 11:56 | Outpatient (CLI) | payer BC | END 2022-03-23 11:57 | disposition home or self-care (01) | LOC: RAD 11:56 | PROVIDERS: ATTEND Internal Medicine Critical Care Medicine | DX: R06.09 Other forms of dyspnea (principal); I27.20 Pulmonary hypertension, unspecified; I51.7 Cardiomegaly | CPT/HCPCS: 71046 ==

== ENCOUNTER 2022-05-11 11:05 | Outpatient (CLI) | payer BC | END 2022-05-11 11:06 | disposition home or self-care (01) | LOC: BICMAMMO 11:05 | PROVIDERS: ATTEND Internal Medicine | DX: Z12.31 Encounter for screening mammogram for malignant neoplasm of breast (principal); Z80.3 Family history of malignant neoplasm of breast; Z91.89 Other specified personal risk factors, not elsewhere classified | CPT/HCPCS: 77063; 77067 ==

== ENCOUNTER 2022-06-02 08:36 | Day surgery (SDC) | payer BC ==
[2022-06-01 11:41] VITALS: BMI 43.3
[2022-06-02] MEDS ORDERED: PROPOFOL 200 MG/20 ML VIAL ONE (10:49)
== END 2022-06-02 12:05 | disposition home or self-care (01) ==
LOC: SDC 08:36
PROVIDERS: ATTEND Internal Medicine Gastroenterology
PROC: 0DBP8ZX Excision of Rectum, Via Natural or Artificial Opening Endoscopic, Diagnostic (ICD-10-PCS; principal; 2022-06-02)
PROC: 0DB68ZX Excision of Stomach, Via Natural or Artificial Opening Endoscopic, Diagnostic (ICD-10-PCS; principal; 2022-06-02)
DX: Z12.11 Encounter for screening for malignant neoplasm of colon (principal); D12.8 Benign neoplasm of rectum; K31.9 Disease of stomach and duodenum, unspecified; R13.10 Dysphagia, unspecified; G47.33 Obstructive sleep apnea (adult) (pediatric); Z86.010 Personal history of colon polyps; Z79.2 Long term (current) use of antibiotics; Z79.620 Long term (current) use of immunosuppressive biologic; Z79.82 Long term (current) use of aspirin; Z79.899 Other long term (current) drug therapy; Z88.1 Allergy status to other antibiotic agents; Z88.2 Allergy status to sulfonamides; Z88.5 Allergy status to narcotic agent; Z88.8 Allergy status to other drugs, medicaments and biological substances; Z95.5 Presence of coronary angioplasty implant and graft; Z98.1 Arthrodesis status
CPT/HCPCS: 88305; 88342; J2704

== ENCOUNTER 2022-09-16 12:53 | Outpatient (CLI) | payer BC | END 2022-09-16 12:54 | disposition home or self-care (01) | LOC: TBSIIMAG 12:53 | PROVIDERS: ATTEND Anesthesiology Pain Medicine | DX: M47.26 Other spondylosis with radiculopathy, lumbar region (principal); M51.16 Intervertebral disc disorders with radiculopathy, lumbar region; M48.061 Spinal stenosis, lumbar region without neurogenic claudication; M47.27 Other spondylosis with radiculopathy, lumbosacral region | CPT/HCPCS: 72100; 72148 ==

== ENCOUNTER 2022-10-07 11:20 | Outpatient (CLI) | payer BC | END 2022-10-07 11:21 | disposition home or self-care (01) | LOC: BICRAD 11:20 | PROVIDERS: ATTEND Anesthesiology Pain Medicine | DX: M47.812 Spondylosis without myelopathy or radiculopathy, cervical region (principal); Z98.890 Other specified postprocedural states | CPT/HCPCS: 72052 ==